=== PATIENT | female | born 1990 | race Caucasian/White ===

== ENCOUNTER 2019-04-10 10:17 | Emergency (ER) | payer SELFPAY ==
[2019-04-10] MEDS ORDERED: Ondansetron ODT 4 MG TAB ONE (10:44)
[2019-04-10] MEDS ORDERED: Mag-Al Plus 1200 MG/1200 MG/120 MG/30 ML UDCUP ONE (10:44)
[2019-04-10] MEDS ORDERED: Lidocaine Viscous Sol 2% 15 ml UD Cup ONE (10:44)
== END 2019-04-10 11:56 | disposition home or self-care (01) ==
LOC: MADERS 10:17
DX: R10.12 Left upper quadrant pain (principal); F41.9 Anxiety disorder, unspecified; F32.9 Major depressive disorder, single episode, unspecified; F17.210 Nicotine dependence, cigarettes, uncomplicated
CPT/HCPCS: 99283; Q0162

== ENCOUNTER 2019-05-26 11:58 | Emergency (ER) | payer SELFPAY ==
--- NOTE | 2019-05-26 12:43 | RAD ---
XR Chest Pa Lat STANDARD History: Productive cough Comparison: None. Findings: Lungs are clear. No pneumothorax. No effusion. No acute osseous abnormality. Impression: No acute intrathoracic abnormality.
== END 2019-05-26 12:54 | disposition home or self-care (01) ==
LOC: MADERS 11:58
DX: J11.1 Influenza due to unidentified influenza virus with other respiratory manifestations (principal); R11.0 Nausea; F41.9 Anxiety disorder, unspecified; F32.9 Major depressive disorder, single episode, unspecified; F17.210 Nicotine dependence, cigarettes, uncomplicated
CPT/HCPCS: 71046; 87804